=== PATIENT | male | born 1995 | race Caucasian/White ===

== ENCOUNTER 2017-04-22 14:58 | Emergency (ER) | payer OTHER ==
[~2017-04-22] VITALS: Ht 162.6 cm; Wt 73.9 kg
[2017-04-22] MEDS ORDERED: IBUP-1114 PO (15:09)
--- NOTE | 2017-04-22 15:51 | REP ---
CT Head without contrast HISTORY: Trauma COMPARISON: 07/17/2016 There is no intraparenchymal hemorrhage, acute infarct, mass or midline shift. The ventricular system is normal in appearance. There is no extra cerebral collection. There is no fracture. The visualized sinuses are clear. IMPRESSION: There is no intracranial lesion. Signed by Flo Albert MD 04/22/2017 03:43 P
[2017-04-22 16:03] VITALS: BP 131/79
== END 2017-04-22 16:40 | disposition home or self-care (01) ==
LOC: M ED 16:06
DX: S00.03XA Contusion of scalp, initial encounter (principal); S06.0X0A Concussion without loss of consciousness, initial encounter; W50.1XXA Accidental kick by another person, initial encounter; Y92.9 Unspecified place or not applicable; Y93.66 Activity, soccer; Y99.1 Military activity